=== PATIENT | female | born 2000 | race Caucasian/White ===

== ENCOUNTER 2022-06-14 23:25 | Emergency (ER) | payer BC ==
[~2022-06-14] VITALS: Ht 165.1 cm; Wt 56.8 kg
[2022-06-14 23:31] VITALS: TEMP 98.1
[2022-06-14 23:38] LABS: COLLECTION METHOD CLEAN CATCH
[2022-06-14 23:46] LABS: SQUAMOUS EPITHELIAL None Seen /hpf (0-10); URINE BACTERIA None Seen /hpf (NONE SEEN); URINE RBC 0-2 /hpf (0-2)
[2022-06-14 23:47] LABS: URINE APPEARANCE Cloudy (CLEAR/HAZY); URINE BLOOD 2+ (NEGATIVE); URINE COLOR Yellow (YELLOW); URINE GLUCOSE Negative (NEGATIVE); URINE KETONE Negative (NEGATIVE); URINE NITRATE Negative (NEGATIVE); URINE PROTEIN(semi-quant) 1+ (NEGATIVE); URINE UROBILINOGEN 0.2 E.U/dL (0.2-1.0)
[2022-06-15] MEDS ORDERED: ZOFRAN ODT4 MG PO (01:01)
[2022-06-15] MEDS ORDERED: DOXYCYCLINE HY100 MG PO (01:01)
[2022-06-15] MEDS ORDERED: FLAGYL500 MG PO (01:01)
[2022-06-15] MEDS ORDERED: MACROBID 1100 MG/CAP PO (01:01)
[2022-06-15 01:16] VITALS: BP 115/78; PULSE 90
== END 2022-06-15 01:16 | disposition home or self-care (01) ==
LOC: COL.ER 23:25
PROVIDERS: Emergency Medicine
DX: N73.9 Female pelvic inflammatory disease, unspecified (principal); N72 Inflammatory disease of cervix uteri; R82.81 Pyuria
CPT/HCPCS: J0696